=== PATIENT | female | born 1960 | race Hispanic/Latino ===

== ENCOUNTER 2018-06-20 23:03 | Emergency (ER) | payer OTHER ==
[~2018-06-20] VITALS: Ht 157.5 cm; Wt 81.6 kg
[~2018-06-20 23:03] MED LIST: BENAZEPRIL HCL10 MG PO; CYCLOBENZAPRINE5 MG PO; NAPROXEN250 MG PO; SERTRALINE HCL50 MG PO; SYNTHROID125 MCG PO
== END 2018-06-21 00:09 | disposition home or self-care (01) ==
LOC: ER 23:03
DX: M54.2 Cervicalgia (principal); M54.12 Radiculopathy, cervical region; I10 Essential (primary) hypertension; E11.9 Type 2 diabetes mellitus without complications
CPT/HCPCS: 99282